=== PATIENT | female | born 1940 | race African-American/Black ===

== ENCOUNTER 2017-10-17 17:37 | Emergency (ER) | payer MEDICARE, MEDICAID ==
[~2017-10-17] VITALS: Ht 172.7 cm; Wt 102.0 kg
[~2017-10-17 17:37] MED LIST: ALLO100T57 PO; ATOR20TA PO; COR12 PO; GABA-531 PO; HYDR-4009 PO; ISRA5CAP PO; LINA5TAB PO; OMEP20CA10 PO; VALS320T2 PO
[2017-10-17 18:31] VITALS: BP 155/85
== END 2017-10-17 22:40 | disposition left against medical advice (07) ==
LOC: ER 17:37
DX: Z53.21 Procedure and treatment not carried out due to patient leaving prior to being seen by health care provider (principal)

== ENCOUNTER 2019-06-14 16:51 | Emergency (ER) | payer MEDICARE, MEDICAID ==
[~2019-06-14] VITALS: Ht 172.7 cm; Wt 100.0 kg
[~2019-06-14 16:51] MED LIST changes: -OMEP20CA10 PO; +OMEP20CA5 PO
[2019-06-14 17:00] VITALS: BP 199/115
== END 2019-06-14 21:20 | disposition left against medical advice (07) ==
LOC: ER 17:37
DX: R07.89 Other chest pain (principal); Z53.21 Procedure and treatment not carried out due to patient leaving prior to being seen by health care provider